=== PATIENT | female | born 1995 | race Caucasian/White ===

== ENCOUNTER 2018-09-26 20:16 | Emergency (ER) | payer OTHER ==
[~2018-09-26] VITALS: Ht 170.2 cm; Wt 72.7 kg
[2018-09-26 20:20] VITALS: BP 118/70; TEMP 98
[2018-09-26 21:58] VITALS: PULSE 78
== END 2018-09-26 21:59 | disposition home or self-care (01) ==
LOC: COL.ER 20:16
DX: G43.909 Migraine, unspecified, not intractable, without status migrainosus (principal)
CPT/HCPCS: J1200; J1885; J2550; J2765; J7030